=== PATIENT | female | born 1960 | race Caucasian/White ===

== ENCOUNTER → 2024-11-25 | Outpatient (CLI) | payer MEDICARE, OTHER ==
[~2024-11-25] MED LIST: ATOR1TAB21; CALC-176 PO; CENT1TAB PO; CETI10CA2 PO; FOLI400T13 PO; GABA-1171; LIDO30CR18 TOP; LIDOCAINE 1% MDV 20ML VIAL As Ordered ONE; MAGN400C2 PO; METH2.5T48; NAPR220C14 PO; ONDA-84 PO; PROC10TA5 PO
[2024-11-25 14:38] VITALS: TEMP 96.5
[2024-11-25 15:00] VITALS: BP 165/78; O2SAT 96
== END ==
LOC: M IRPRO 14:00
PROVIDERS: ATTEND Otolaryngology
DX: R22.1 Localized swelling, mass and lump, neck (principal)

== ENCOUNTER → 2024-12-11 | Outpatient (CLI) | payer MEDICARE, OTHER ==
[~2024-12-11] MED LIST changes: -CETI10CA2 PO; -LIDO30CR18 TOP; -LIDOCAINE 1% MDV 20ML VIAL As Ordered ONE; -ONDA-84 PO; -PROC10TA5 PO
== END ==
LOC: M CARPUL 15:35
PROVIDERS: ATTEND Internal Medicine Medical Oncology
DX: C81.90 Hodgkin lymphoma, unspecified, unspecified site (principal); I50.30 Unspecified diastolic (congestive) heart failure

== ENCOUNTER → 2024-12-14 | Outpatient (CLI) | payer MEDICARE, OTHER | LOC: M PLARAD 11:53 | PROVIDERS: ATTEND Internal Medicine Medical Oncology | DX: C81.98 Hodgkin lymphoma, unspecified, lymph nodes of multiple sites (principal) | CPT/HCPCS: 78815; A9552 ==

== ENCOUNTER → 2024-12-25 | Outpatient (CLI) | payer MEDICARE, OTHER ==
[~2024-12-25] VITALS: Ht 167.6 cm; Wt 105.0 kg
[2024-12-25 08:25] VITALS: TEMP 96.6
[2024-12-25] MEDS: NS (Normal Saline) 0.9% 1,000 ML IV SCH (09:22)
[2024-12-25] MEDS: ceFAZolin SODIUM 2 GM in DEXTROSE 5% (D5W) ADV/MINI-BAG 50 ML IV ONE (09:23)
[2024-12-25] MEDS: fentaNYL 100 MCG/2 ML INJECTION IV PRN (09:26)
[2024-12-25] MEDS: MIDAZOLAM INJ 2MG/2ML VIAL IV PRN (09:26)
[2024-12-25] MEDS: LIDOCAINE 1% MDV 20ML VIAL SC ONE (09:38)
[2024-12-25 10:20] VITALS: BP 123/71; O2SAT 95
== END ==
LOC: M IRPRO 08:08
PROVIDERS: ATTEND Internal Medicine Medical Oncology
DX: C81.90 Hodgkin lymphoma, unspecified, unspecified site (principal)
CPT/HCPCS: 36561; 99152; C1894; J0690; J1642; J2250; J3010

== ENCOUNTER → 2024-12-30 | Outpatient (CLI) | payer MEDICARE, OTHER ==
[~2024-12-30] MED LIST changes: +CETI10CA2 PO
== END ==
LOC: M CARPUL 13:52
PROVIDERS: ATTEND Internal Medicine Medical Oncology
DX: C81.90 Hodgkin lymphoma, unspecified, unspecified site (principal)

== ENCOUNTER → 2025-05-11 | Outpatient (CLI) | payer MEDICARE, OTHER ==
[~2025-05-11] MED LIST changes: -ATOR1TAB21; +ATOR1TAB21 PO; +BACT800T5 PO; +CEPH500C PO; +CLAR1TAB13 PO; -GABA-1171; +GABA-1171 PO; +ISOVUE-370 76% 100 ML VIAL As Ordered ONE; +LIDO30CR18 TOP; +MAGICMW SSP; +NYST-38 PO; +ONDA-84 PO; +POTA1TAB21 PO; +PROC10TA5 PO
== END ==
LOC: M RAD 07:58
PROVIDERS: ATTEND Internal Medicine Medical Oncology
DX: C81.11 Nodular sclerosis Hodgkin lymphoma, lymph nodes of head, face, and neck (principal); K76.0 Fatty (change of) liver, not elsewhere classified; I70.0 Atherosclerosis of aorta; J98.11 Atelectasis; J84.10 Pulmonary fibrosis, unspecified
CPT/HCPCS: 36591; 70491; 71260; 74177; 80053; 83735; 84238; 85025; 85652; Q9967

== ENCOUNTER → 2025-07-27 | Outpatient (CLI) | payer MEDICARE, OTHER ==
[~2025-07-27] MED LIST changes: -ISOVUE-370 76% 100 ML VIAL As Ordered ONE; +LEVO1TAB39 PO
== END ==
LOC: M CARPUL 15:01
PROVIDERS: ATTEND Internal Medicine Medical Oncology
DX: C81.90 Hodgkin lymphoma, unspecified, unspecified site (principal)

== ENCOUNTER → 2025-08-23 | Outpatient (CLI) | payer MEDICARE, OTHER | LOC: M PLARAD 09:49 | PROVIDERS: ATTEND Internal Medicine Medical Oncology | DX: C81.98 Hodgkin lymphoma, unspecified, lymph nodes of multiple sites (principal) | CPT/HCPCS: 78815; A9552 ==

== ENCOUNTER → 2025-09-15 | Outpatient (CLI) | payer MEDICARE, OTHER | LOC: M ONCM 09:16 | PROVIDERS: ATTEND Dietitian, Registered | DX: Z71.3 Dietary counseling and surveillance (principal); C81.90 Hodgkin lymphoma, unspecified, unspecified site; Z68.25 Body mass index [BMI] 25.0-25.9, adult ==